=== PATIENT | male | born 1945 | race Caucasian/White ===

== ENCOUNTER 2020-12-30 15:12 | Observation (INO) ==
[2020-12-30] MEDS ORDERED: Acetaminophen 325 MG TABLET PO PRN (16:46)
[2020-12-30] MEDS ORDERED: Ondansetron 4 MG/2 ML VIAL IVP PRN (16:46)
[2020-12-30] MEDS ORDERED: *HR* HYDROcodone/Acet 5/325 mg TABLET PO PRN (16:46)
[2020-12-30] MEDS ORDERED: Melatonin 3 MG TABLET PO PRN (16:46)
[2020-12-30] MEDS ORDERED: Naloxone 0.4 MG/ML INJ IVP PRN (16:46)
[2020-12-30] MEDS ORDERED: Dextrose Gel 15 GM/37.5 ML TUBE PO PRN ×2 (16:48)
[2020-12-30] MEDS ORDERED: *HR* Dextrose 50 % in Water (Vial) 50 ML VIAL IVP PRN (16:48)
[2020-12-30] MEDS ORDERED: D5% in Water 1,000 ML IVC PRN (16:48)
[2020-12-30] MEDS ORDERED: Ipratropium/Albuterol Neb 3 ML IH PRN (16:51)
[2020-12-30 18:04] LABS: Chol/HDL Ratio 4.4 (0-4.9)
[2020-12-30] MEDS: Ringers Solution, Lactated 1,000 ML IVC SCH (18:19)
[2020-12-30] MEDS: Insulin LISPRO 300 UNITS/3 ML VIAL SUBQ SCH ×2 (18:20→18:21)
[2020-12-30] MEDS ORDERED: Insulin DETEMIR 100 UNIT/ML X5UNITS SUBQ SCH (21:00)
[2020-12-30] MEDS: *HR* Heparin 5,000 UNIT/ML VIAL SQ SCH (21:04)
[2020-12-30 22:35] LABS: Estimated Average Glucose 269 mg/dl
[2020-12-31 00:21] LABS: Bilirubin,Urine Negative (Negative); Blood,Urine Trace (Negative); Clarity,Urine Clear (Clear); Color,Urine Light-Yellow (Yellow); Glucose,Urine (UA) >=1000 mg/dL (Normal); Ketones,Urine Negative (Negative); Leukocyte Esterase,Urine Negative (Negative); Nitrite,Urine Negative (Negative); Protein,Urine 30 mg/dL (Neg-Trace); RBC,Urine 0-3 per hpf (0-3); Specific Gravity,Urine 1.025 (1.010-1.025); Urobilinogen,Urine Normal (Normal); WBC,Urine 0-3 per hpf (0-3)
[2020-12-31 05:22] LABS: Red Cell Distribution Width 12.1 % (11.5-14.5)
[2020-12-31 05:24] LABS: Hematocrit 39.2 % (37.5-50.1); Hemoglobin 13.9 g/dL (12.9-16.9); Immature Platelets 3.4 % (1.1-6.1); Mean Corpuscular HGB Conc 35.5 g/dL (31.6-35.5); Mean Corpuscular Hemoglobin 32.1 pg (28.0-33.3); Mean Corpuscular Volume 90.5 fL (83.0-100.0); Mean Platelet Volume 9.9 fL (9.4-12.4); Red Blood Count 4.33 M/mcL (4.19-5.50); White Blood Count 5.2 K/mcL (4.3-11.1)
[2020-12-31 05:40] LABS: BUN/Creatinine Ratio 17 (6-26); Blood Urea Nitrogen 19 mg/dL (8-23); Calcium 8.7 mg/dL (8.6-10.3); Carbon Dioxide 26 mEq/L (23-29); Chloride 106 mEq/L (98-107); Glucose 78 mg/dL (70-105); Magnesium 1.6 mg/dL (1.6-2.6); Osmolality,Calculated 285 (280-300); Phosphorous 2.9 mg/dL (2.7-4.5); Potassium 2.9 mEq/L (3.5-5.1); Sodium 137 mEq/L (136-145); eGFR For African Americans > 60 (> 60); eGFR For Non-African Americans > 60 (> 60)
[2020-12-31] MEDS: *HR* Heparin 5,000 UNIT/ML VIAL SQ SCH ×2 (06:15→14:33)
[2020-12-31] MEDS ORDERED: Insulin LISPRO 300 UNITS/3 ML VIAL SUBQ SCH (07:30)
[2020-12-31] MEDS: Insulin LISPRO 300 UNITS/3 ML VIAL SUBQ SCH ×4 (07:42→12:01)
[2020-12-31] MEDS: Ringers Solution, Lactated 1,000 ML IVC SCH (07:48)
[2020-12-31] MEDS ORDERED: amLODIPine 5 MG TABLET PO SCH (09:00)
[2020-12-31] MEDS ORDERED: FLUoxetine 20 MG CAPSULE PO SCH (09:00)
[2020-12-31] MEDS ORDERED: Cyanocobalamin (B-12) 1,000 MCG TABLET PO SCH (09:00)
[2020-12-31] MEDS ORDERED: Metoprolol XL (24 HR) Succ 50 MG TAB.ER.24H PO SCH (09:00)
[2020-12-31] MEDS ORDERED: Aspirin Enteric Coated 81 MG Tablet PO SCH (09:00)
[2020-12-31] MEDS ORDERED: Nicotine 21 MG PATCH.TD24 TD SCH (09:00)
[2020-12-31 11:08] VITALS: BP 143/72; PULSE 68; TEMP 98.2; O2SAT 96
== END 2020-12-31 15:19 | disposition home or self-care (01) ==
LOC: CDU → SUATTDRO 16:02
PROVIDERS: ADMIT Internal Medicine; ATTEND Internal Medicine